=== PATIENT | male | born 1980 | race Caucasian/White ===

== ENCOUNTER 2019-01-27 19:27 | Emergency (ER) | payer OTHER ==
[2019-01-27] MEDS ORDERED: HYDROMORPHONE HCL INJ/PF 2 MG/ML AMPULE IV ONE ×2 (21:08→23:39)
[2019-01-27] MEDS ORDERED: ONDANSETRON HCL INJ/PF 4 MG/2 ML SDV IV ONE (21:17)
--- NOTE | 2019-01-27 21:21 | ER Document Report ---
ED General <DERRICK LAW A - Last Filed: 01/28/19 07:19> <MINDI TRUJILLO A - Last Filed: 01/28/19 14:11> - General Chief Complaint: Other Stated Complaint: STINGRAY BITE Time Seen by Provider: 01/27/19 21:08 Primary Care Provider: [facility] [Provider Group] - 01/29/19 [facility] ([place], [place]) [Provider Group] - 01/29/19 GIANCARLO GOINS DO [ACTIVE STAFF] - Follow up as needed - HPI Notes: Patient is a 38-year-old male that presents to the emergency department for chief complaint of stingray sting. He reports around 6 PM he was fishing with his son and caught a stingray. He was pulling it out of the water to take pictures when it stung him in his right knee. Patient received 2 separate doses of Dilaudid by EMS but reports continued severe pain. He also is now having nausea and has had one episode of emesis in the ED. He denies any chronic medical illnesses. He denies any other injuries tonight. He denies numbness, weakness, lightheadedness and palpitations. Past Medical History: Chronic neck pain Past Surgical History: Negative Social History: Medical marijuana. Denies alcohol or tobacco use Family History: Reviewed and noncontributory for presenting illness Allergies: Reviewed, see documented allergy list. REVIEW OF SYSTEMS: CONSTITUTIONAL : No fever No chills diaphoresis No recent illness EENT: No vision changes No congestion No sore throat CARDIOVASCULAR: No chest pain No palpitations RESPIRATORY: No shortness of breath No cough No difficulty breathing GASTROINTESTINAL: No abdominal pain nausea vomiting No diarrhea GENITOURINARY: No dysuria No hematuria No difficulty urinating MUSCULOSKELETAL: No back pain leg pain No arm pain SKIN: No rashes lesions LYMPHATIC: No swollen, enlarged glands. NEUROLOGICAL: No lightheadedness No headache No weakness No paresthesias PSYCHIATRIC: No anxiety No depression PHYSICAL EXAMINATION: Vital signs reviewed, nursing noted reviewed. GENERAL: Appears uncomfortable, mildy diaphoretic, well-nourished and in moderate acute distress. HEAD: Atraumatic, normocephalic. EYES: Eyes appear normal, extraocular movements intact, sclera anicteric, conjunctiva are normal. ENT: nares patent, oropharynx clear without exudates. Moist mucous membranes. NECK: Normal range of motion, supple without lymphadenopathy LUNGS: Breath sounds clear to auscultation bilaterally and equal. No wheezes rales or rhonchi. HEART: Regular rate and rhythm without murmurs ABDOMEN: Soft, nontender, normoactive bowel sounds. No rebound, guarding, or rigidity. No masses appreciated. EXTREMITIES: right knee tenderness around puncture wound, no joint effusion, good range of motion, no pitting or edema. NEUROLOGICAL: No focal neurological deficits. Moves all extremities spontaneously Motor and sensory grossly intact on exam. PSYCH: anxious and agitated mood SKIN: Warm, mildly diaphoretic, normal turgor. right knee erythema, 0.5 cm puncture wound to medial right knee with minimal bleeding (MINDI TRUJILLO) - Related Data Allergies/Adverse Reactions: lisinopril Allergy (Verified 01/27/19 22:04) Past Medical History - Social History Smoking Status: Unknown if Ever Smoked Drug Abuse: None Lives with: Spouse/Significant other Family History: Reviewed & Not Pertinent <DERRICK LAW - Last Filed: 01/28/19 07:19> - Social History Smoking Status: Never Smoker Chew tobacco use (# tins/day): No Frequency of alcohol use: None Drug Abuse: None Patient has suicidal ideation: No Patient has homicidal ideation: No Renal/ Medical History: Denies: Hx Peritoneal Dialysis <MINDI TRUJILLO - Last Filed: 01/28/19 14:11> - Vital signs Vitals: Temp Pulse Resp BP Pulse Ox 98.5 F 90 28 H 113/84 100 01/27/19 19:43 01/27/19 19:43 01/27/19 19:43 01/27/19 19:43 01/27/19 19:43 Course - Laboratory Result Diagrams: 01/28/19 00:00 01/28/19 00:00 <DERRICK LAW - Last Filed: 01/28/19 07:19> - Laboratory Result Diagrams: 01/28/19 00:00 01/28/19 00:00 <MINDI TRUJILLO - Last Filed: 01/28/19 14:11> - Re-evaluation Re-evalutation: 01/27/19 23:16 Extremity Ultrasound 01/27/19 21:34 IMPRESSION: No definite radiopaque foreign body. No obvious foreign body seen on ultrasound. Repeat evaluation shows a large amount of redness with spider webbing appearance to the skin extending up to the inguinal area on the right. There is a small amount of blood coming out of the puncture wound. I have consulted with orthopedic surgery due to the closeness of the knee joint. He recommends observation for the patient, IV antibiotics, x-ray and labs and he will consult in the morning. 01/27/19 23:58 01/28/19 07:19 Patient was observed overnight in the ER. Received some IV antibiotics and oral doxycycline. The redness is much improved. Anticipate this is more of an envenomation type reaction versus infection. Dr. Goins with orthopedic surgery has evaluated the patient and does not feel he needs to be taken to the OR. Patient is pain-free at this time. I am comfortable discharging now in stable condition. Dr. Goins recommends doxycycline so we will change that. 01/28/19 07:20 Extremity Ultrasound 01/27/19 21:34 IMPRESSION: No definite radiopaque foreign body. Knee X-Ray 01/27/19 23:47 IMPRESSION: No evidence of acute osseous injury involving the right knee. There may be very mild soft tissue swelling along the medial aspect of the right knee. Laboratory 01/28/19 01/28/19 01/28/19 00:00 00:00 00:00 WBC 12.8 H RBC 4.70 Hgb 14.2 Hct 41.2 MCV 88 MCH 30.2 MCHC 34.4 RDW 13.0 Plt Count 234 Seg Neutrophils % 83.1 H Lymphocytes % 8.9 L Monocytes % 7.6 Eosinophils % 0.0 Basophils % 0.4 Absolute Neutrophils 10.7 H Absolute Lymphocytes 1.1 Absolute Monocytes 1.0 Absolute Eosinophils 0.0 Absolute Basophils 0.0 PT 13.7 INR 1.05 APTT 26.2 Sodium 140.9 Potassium 4.3 Chloride 106 Carbon Dioxide 24 Anion Gap 11 BUN 20 Creatinine 0.82 Est GFR ( Amer) > 60 Est GFR (Non-Af Amer) > 60 Glucose 124 H Calcium 9.6 Total Bilirubin 0.6 Direct Bilirubin 0.2 Neonat Total Bilirubin Not Reportable Neonat Direct Bilirubin Not Reportable Neonat Indirect Bili Not Reportable AST 41 ALT 47 Alkaline Phosphatase 50 Total Protein 6.6 Albumin 4.3 (DERRICK LAW) 01/27/19 21:25 vitals reviewed. nursing notes reviewed. patient recieved 2 mg IV dilaudid by EMS prior to arrival. He was given another 1mg dilaudid and zofran for continued symptomatic management. Local wound exploration shows no retained foreign material. 01/27/19 21:41 Patient's care was discussed with poison control. They recommend ultrasound to evaluate for retained foreign body. Patient's tetanus vaccine will be updated. He was started on Bactrim which was recommended by poison control to prophylax against infection. The wound was soaked in warm water for at least 2 hours in the emergency room. At this time patient states he is feeling much better. Ultrasound has been ordered. Patient has no symptoms of severe envenomation including neurologic deficits, hypotension or seizure activity. Poison control recommended EKG which has been ordered as well. Care signed out to Dr. Law with US pending. (MINDI TRUJILLO) - Vital Signs Vital signs: Temp Pulse Resp BP Pulse Ox 98.1 F 72 16 124/78 100 01/28/19 07:52 01/28/19 07:52 01/28/19 07:52 01/28/19 07:52 01/28/19 07:52 - Laboratory Laboratory results interpreted by me: 01/28/19 01/28/19 00:00 00:00 WBC 12.8 H Seg Neutrophils % 83.1 H Lymphocytes % 8.9 L Absolute Neutrophils 10.7 H Glucose 124 H - EKG Interpretation by Me Additional EKG results interpreted by me: 01/27/19 21:49 Interpreted by myself [id number]: Normal sinus rhythm, rate 77, normal axis, no ectopy, no STEMI, normal QT, LVH (MINDI TRUJILLO) Discharge <DERRICK LAW - Last Filed: 01/28/19 07:19> <MINDI TRUJILLO - Last Filed: 01/28/19 14:11> - Discharge Clinical Impression: Toxic effect of contact with stingray, accidental (unintentional), initial encounter Condition: Stable Disposition: HOME, SELF-CARE Additional Instructions: Please return to the emergency department if you have any worsening, or concern of your symptoms. Please return to the emergency department if you develop chest pain, difficulty breathing, severe abdominal pain, or ongoing vomiting. If prescribed, take all medications as directed. If you have any questions or concerns do not hesitate to return the emergency department for evaluation. Keep the wound clean by washing at least 3 times a day with antibacterial soap Avoid exposing your wound to salt water If you have any increased redness, swelling, fevers or chills you should be reevaluated in the emergency room. Your wound needs to be reevaluated for signs of infection in 48 hours. The [facility] and [facility] are free clinics in [facility] that you can contact for follow-up. If you are unable to see a primary care provider in the area and have concerns about your wound please return to the emergency room for wound recheck. Prescriptions: RX: Doxycycline Hyclate 100 mg PO BID 7 Days #14 capsule Ondansetron [Zofran Odt 4 mg Tablet] 1 tab PO Q4H PRN #15 tab.rapdis PRN Reason: For Nausea/Vomiting Oxycodone HCl/Acetaminophen [Percocet 5-325 mg Tablet] 1 tab PO Q4H PRN #20 tablet PRN Reason: Sulfamethoxazole/Trimethoprim [Bactrim Ds Tablet] 1 each PO BID #14 tablet Referrals: [facility] [Provider Group] - 01/29/19 [facility] ([place], [place]) [Provider Group] - 01/29/19 GIANCARLO GOINS DO [ACTIVE STAFF] - Follow up as needed
[2019-01-27] MEDS ORDERED: DIPH/PERTUSS(ACELL)/TETANUS VAC/PF 0.5 ML SYR (>=10YO) IM ONE (21:27)
[2019-01-27] MEDS ORDERED: DOXYCYCLINE HYCLATE 100 MG TABLET PO ONE (21:29)
[2019-01-27] MEDS ORDERED: KETOROLAC TROMETHAMINE INJ/PF 30 MG/1 ML SDV IM ONE (21:30)
[2019-01-27] MEDS ORDERED: SULFAMETHOXAZOLE/TRIMETHOPRIM 800-160 MG TABLET PO ONE (21:30)
[2019-01-27] MEDS ORDERED: ONDANSETRON 4 MG TAB.RAPDIS PO ONE (21:39)
--- NOTE | 2019-01-27 23:15 | RADIOLOGY REPORT (SQ) ---
CLINICAL HISTORY: foreign body COMPARISON: None. TECHNIQUE: US EXTREMITY MUSCULOSKELETAL LIMITED on 01/27/2019 9:34 PM CDT FINDINGS: Multiple images involving the area questioned no definite radiopaque foreign body. IMPRESSION: No definite radiopaque foreign body.
[2019-01-27] MEDS ORDERED: VANCOMYCIN HCL INJ 1000 MG VIAL IV ONE (23:55)
[2019-01-28 00:20] LABS: ABSOLUTE LYMPHOCYTES (AUTO) 1.1 10^3/uL (0.5-4.7); ABSOLUTE NEUT (AUTO) 10.7 10^3/uL (1.7-8.2); BASOPHILS % (AUTO) 0.4 % (0-2); HEMATOCRIT 41.2 % (37.9-51.0); HEMOGLOBIN 14.2 g/dL (13.5-17.0); LYMPHOCYTES % (AUTO) 8.9 % (13-45); MEAN CORPUSCULAR HEMOGLOBIN 30.2 pg (27.0-33.4); MEAN CORPUSCULAR HGB CONC 34.4 g/dL (32.0-36.0); MEAN CORPUSCULAR VOLUME 88 fl (80-97); MONOCYTES % (AUTO) 7.6 % (3-13); PLATELET COUNT 234 10^3/uL (150-450); SEGMENTED NEUTROPHILS % (AUTO) 83.1 % (42-78); TOTAL CELLS COUNTED % (AUTO) 100 %; WHITE BLOOD COUNT 12.8 10^3/uL (4.0-10.5)
--- NOTE | 2019-01-28 00:34 | RADIOLOGY REPORT (SQ) ---
EXAM: X-ray knee three views CLINICAL DATA: 38-year-old male with puncture by stingray TECHNICAL DATA: Three x-ray views of the right knee were performed on 01/28/2019 at 12:12 AM. COMPARISONS: None FINDINGS: There is no evidence of fracture or dislocation. There is no significant arthritis or degenerative change. No focal lytic or sclerotic bone lesions are seen. Bone mineralization is normal. There may be very mild soft tissue swelling along the medial aspect of the right knee. No definite subcutaneous emphysema is identified. No radiopaque foreign bodies are seen. IMPRESSION: No evidence of acute osseous injury involving the right knee. There may be very mild soft tissue swelling along the medial aspect of the right knee.
[2019-01-28 00:37] LABS: INTERNATIONAL RATION (INR) 1.05; PROTHROMBIN TIME 13.7 SEC (11.4-15.4)
[2019-01-28 00:41] LABS: ALANINE AMINOTRANSFERASE 47 U/L (21-72); ALBUMIN 4.3 g/dL (3.5-5.0); ALKALINE PHOSPHATASE 50 U/L (38-126); ANION GAP 11 (5-19); ASPARTATE AMINO TRANSFERASE 41 U/L (17-59); BILIRUBIN,DIRECT 0.2 mg/dL (0.0-0.4); BILIRUBIN,TOTAL 0.6 mg/dL (0.2-1.3); BLOOD UREA NITROGEN 20 mg/dL (7-20); CALCIUM 9.6 mg/dL (8.4-10.2); CARBON DIOXIDE 24 mmol/L (22-30); CHLORIDE 106 mmol/L (98-107); GLUCOSE 124 mg/dL (75-110); POTASSIUM 4.3 mmol/L (3.6-5.0); SODIUM 140.9 mmol/L (137-145); TOTAL PROTEIN 6.6 g/dL (6.3-8.2)
[2019-01-28 00:43] LABS: PARTIAL THROMBOPLASTIN TIME 26.2 SEC (23.5-35.8)
[2019-01-28] MEDS ORDERED: DOXYCYCLINE HYCLATE 100 MG TABLET PO ONE (00:48)
[2019-01-28 07:55] VITALS: BP 124/78
[2019-01-28] MEDS ORDERED: DOXYCYCLINE HYCLATE 100 MG TABLET PO SCH (08:00)
--- NOTE | 2019-01-28 08:03 | PDOC CONSULTATION ---
Consultation Consult Date: 01/28/19 Attending physician:: DERRICK LAW Provider Consulted: GIANCARLO HAJI History of Present Illness Patient complains of: Right knee pain History of Present Illness: LUCAS NUÑEZ is a 38 year old male sustained a sting warren laceration to his right knee yesterday. Patient presents the emergency room with significant pain and burning with streaking erythema up his leg. He was started on IV vancomycin and a dose of doxycycline. Over the past 12 hours patient has significant relief. Original pain was 10/10 current pain 2/10. Denies numbness or tingling. Denies fever chills or sweats. Denies constitutional symptoms. Denies chest pain or shortness of breath. Social History Lives with: Spouse/Significant other Smoking Status: Unknown if Ever Smoked Family History Family History: Reviewed & Not Pertinent Parental Family History Reviewed: No Children Family History Reviewed: No Sibling(s) Family History Reviewed.: No Medication/Allergy Home Medications: Ondansetron [Zofran Odt 4 mg Tablet] 1 tab PO Q4H PRN #15 tab.rapdis 01/27/19 Oxycodone HCl/Acetaminophen [Percocet 5-325 mg Tablet] 1 tab PO Q4H PRN #20 tablet 01/27/19 Sulfamethoxazole/Trimethoprim [Bactrim Ds Tablet] 1 each PO BID #14 tablet 01/27/19 Doxycycline Hyclate 100 mg PO BID 7 Days #14 capsule 01/28/19 Allergies/Adverse Reactions: lisinopril Allergy (Verified 01/27/19 22:04) Review of Systems Constitutional: ABSENT: chills, fever(s), headache(s), weight gain, weight loss Eyes: ABSENT: visual disturbances Ears: ABSENT: hearing changes Cardiovascular: ABSENT: chest pain, dyspnea on exertion, edema, orthropnea, palpitations Respiratory: ABSENT: cough, hemoptysis Gastrointestinal: ABSENT: abdominal pain, constipation, diarrhea, hematemesis, hematochezia, nausea, vomiting Genitourinary: ABSENT: dysuria, hematuria Musculoskeletal: PRESENT: as per HPI Integumentary: ABSENT: rash, wounds Neurological: ABSENT: abnormal gait, abnormal speech, confusion, dizziness, focal weakness, syncope Psychiatric: ABSENT: anxiety, depression, homidical ideation, suicidal ideation Endocrine: ABSENT: cold intolerance, heat intolerance, menstrual abnormalities, polydipsia, polyuria Hematologic/Lymphatic: ABSENT: easy bleeding, easy bruising, lymphadenopathy Physical Exam Vital Signs: Temp Pulse Resp BP Pulse Ox 98.1 F 72 16 124/78 100 01/28/19 07:52 01/28/19 07:52 01/28/19 07:52 01/28/19 07:52 01/28/19 07:52 General appearance: PRESENT: no acute distress, well-developed, well-nourished Head exam: PRESENT: atraumatic, normocephalic Eye exam: PRESENT: conjunctiva pink, EOMI, PERRLA. ABSENT: scleral icterus Ear exam: PRESENT: normal external ear exam Mouth exam: PRESENT: moist, tongue midline Neck exam: PRESENT: full ROM. ABSENT: carotid bruit, JVD, lymphadenopathy, thyromegaly Cardiovascular exam: PRESENT: RRR. ABSENT: diastolic murmur, rubs, systolic murmur Pulses: PRESENT: normal dorsalis pedis pul, +2 pedal pulses bilateral Vascular exam: PRESENT: normal capillary refill GI/Abdominal exam: PRESENT: normal bowel sounds, soft. ABSENT: distended, guarding, mass, organolmegaly, rebound, tenderness Rectal exam: PRESENT: deferred Musculoskeletal exam: PRESENT: other - Right knee: 2 mm x 1 mm laceration along the superficial suprapatellar medial aspect of the knee. No evidence of effusion. Mild erythema along the wound. No streaking erythema. No evidence of lymphadenopathy. No calf tenderness. Compartments soft and compressible no sign of compartment syndrome. Intact plantarflexion/dorsiflexion. Full knee range of motion without discomfort. Neurological exam: PRESENT: alert, awake, oriented to person, oriented to place, oriented to time, oriented to situation, CN II-XII grossly intact. ABSENT: motor sensory deficit Psychiatric exam: PRESENT: appropriate affect, normal mood. ABSENT: homicidal ideation, suicidal ideation Skin exam: PRESENT: dry, intact, warm. ABSENT: cyanosis, rash Results Laboratory Results: 01/28/19 00:00 01/28/19 00:00 01/28/19 01/28/19 00:00 00:00 WBC 12.8 H RBC 4.70 Hgb 14.2 Hct 41.2 MCV 88 MCH 30.2 MCHC 34.4 RDW 13.0 Plt Count 234 Seg Neutrophils % 83.1 H Lymphocytes % 8.9 L Monocytes % 7.6 Eosinophils % 0.0 Basophils % 0.4 Absolute Neutrophils 10.7 H Absolute Lymphocytes 1.1 Absolute Monocytes 1.0 Absolute Eosinophils 0.0 Absolute Basophils 0.0 Sodium 140.9 Potassium 4.3 Chloride 106 Carbon Dioxide 24 Anion Gap 11 BUN 20 Creatinine 0.82 Est GFR ( Amer) > 60 Est GFR (Non-Af Amer) > 60 Glucose 124 H Calcium 9.6 Total Bilirubin 0.6 AST 41 ALT 47 Alkaline Phosphatase 50 Total Protein 6.6 Albumin 4.3 Impressions: Extremity Ultrasound 01/27/19 21:34 IMPRESSION: No definite radiopaque foreign body. Knee X-Ray 01/27/19 23:47 IMPRESSION: No evidence of acute osseous injury involving the right knee. There may be very mild soft tissue swelling along the medial aspect of the right knee. Status: Image reviewed by me - I have reviewed patient's radiographs which demonstrate no evidence of foreign body mild soft tissue swelling no evidence of effusion Assessment & Plan - Diagnosis (1) Toxic effect of contact with stingray, accidental (unintentional), initial encounter Is this a current diagnosis for this admission?: Yes Plan: Patient sustained a unintentional stingray laceration along his knee however there is no evidence of constitutional symptoms his original discomfort is notab ly improved likely as the antitoxin has been resorbed. At this point I have recommended p.o. doxycycline I have explained to the patient to be noticed increasing pain, redness, swelling or constitutional symptoms he should return to the emergency room. Patient may follow-up on an as-needed basis.
--- NOTE | 2019-01-29 19:13 | EKG REPORT ---
SEVERITY:- ABNORMAL ECG - SINUS RHYTHM CONSIDER LEFT VENTRICULAR HYPERTROPHY : Confirmed by: Marcos Akins MD 29-Jan-2019 19:12:26
== END 2019-01-28 07:55 | disposition home or self-care (01) ==
LOC: ER 19:27
DX: T63.511A Toxic effect of contact with stingray, accidental (unintentional), initial encounter (principal); R11.2 Nausea with vomiting, unspecified
CPT/HCPCS: 93005; 36415; 87040; 85025; 85610; 85730; 80053; 73562; 76882; 90715; 93010; S0119; J1885; J1170; J3370